=== PATIENT | male | born 1980 | race American Indian/Alaskan Native ===

== ENCOUNTER 2016-12-08 23:21 | Emergency (ER) | payer SELFPAY ==
[2016-12-08 23:21] VITALS: BMI 23.8
[2016-12-08 23:37] VITALS: O2SAT 98
--- NOTE | 2016-12-09 | ED PDOC ---
Arrival/HPI - General Historian: Patient, Spouse - History of Present Illness Time/Duration: 1 hour Symptom Onset: Sudden <Alberto Diego - Last Filed: 12/09/16 03:35> <Maxim Murphy - Last Filed: 12/09/16 04:03> - General Chief Complaint: Headache Time Seen by Provider: 12/08/16 23:35 - History of Present Illness Narrative History of Present Illness (Text): 12/09/16 00:08 36 year old male with past medical history of hypertension, migraine headache, and medication noncompliance presents to [facility] ED after having a syncope episode at home. Patient was feeling lightheaded and nauseous throughout the day. Patient was in the bathroom this evening where he suddenly felt dizzy and proceed to loss of consciousness. Patient reports hitting his head after became unconscious. Patient does not know how long he was unconscious. He is currently complaining of headache, blurred vision, and nauseous. Patient tried taking Tylenol for pain but vomited soon after taking it. Patient takes multiple HTN medication, but he has a history of medication noncompliance. Patient denies fever, chills, shortness of breath, chest pain, urinary or fecal incontinence. (Alberto Diego) Past Medical History - Provider Review Nursing Documentation Reviewed: Yes - Tetanus Immunization Tetanus Immunization: Unknown - Past Medical History Past Medical History: No Previous - Cardiac Hx Hypertension: Yes Hx Pacemaker: No - Pulmonary Hx Respiratory Disorders: No - Neurological Hx Neurological Disorder: No Hx Migraine: Yes - HEENT Hx HEENT Disorder: No - Renal Hx Renal Disorder: No - Endocrine/Metabolic Hx Endocrine Disorders: No - Hematological/Oncological Hx Blood Disorders: No Hx Blood Transfusions: No Hx Blood Transfusion Reaction: No - Integumentary Hx Dermatological Disorder: No - Musculoskeletal/Rheumatological Hx Musculoskeletal Disorders: No Hx Back Pain: (pt denies back pain) - Gastrointestinal Hx Gastrointestinal Disorders: No Other/Comment: stomach problem, had endo 1 yr ago was told he had "a lump" in his stomach, no follow up - Genitourinary/Gynecological Hx Genitourinary Disorders: No - Psychiatric Hx Psychophysiologic Disorder: No Hx Emotional Abuse: No Hx Physical Abuse: No Hx Substance Use: No - Surgical History Other/Comment: hernia sx umbilical as an - Anesthesia Hx Anesthesia: Yes Hx Anesthesia Reactions: No (SX INFANT) Hx Malignant Hyperthermia: No - Suicidal Assessment Feels Threatened In Home Enviroment: No <Alberto Diego - Last Filed: 12/09/16 03:35> Family/Social History - Physician Review Nursing Documentation Reviewed: Yes Family/Social History: Unknown Family HX Smoking Status: Current Some Days Smoker Hx Alcohol Use: Yes (social) Frequency of alcohol use: Socially Hx Substance Use: No <Alberto Diego - Last Filed: 12/09/16 03:35> Allergies/Home Meds <Alberto Diego - Last Filed: 12/09/16 03:35> <Maxim Murphy - Last Filed: 12/09/16 04:03> Allergies/Adverse Reactions: Allergies No Known Allergies Allergy (Verified 12/08/16 23:38) Review of Systems - Physician Review All systems were reviewed & negative as marked: Yes - Review of Systems Constitutional: Fatigue. absent: Weight Change, Fevers Eyes: Vision Changes (blurred vision) ENT: Normal Respiratory: Normal. absent: SOB, Cough Cardiovascular: Syncope. absent: Chest Pain, Palpitations, Edema Gastrointestinal: Nausea, Vomiting. absent: Abdominal Pain, Diarrhea Genitourinary Male: Normal Musculoskeletal: Normal Neurological: Headache Endocrine: Normal Hemo/Lymphatic: Normal Psychiatric: Normal <Alberto Diego - Last Filed: 12/09/16 03:35> Physical Exam Vital Signs Reviewed: Yes Temperature: Afebrile Blood Pressure: Hypertensive Pulse: Bradycardic Respiratory Rate: Normal Appearance: Positive for: Non-Toxic, Uncomfortable Pain Distress: Moderate Mental Status: Positive for: Alert and Oriented X 3 - Systems Exam Head: Present: Other (2 small bumps on the cephalic surface. No ecchymosis, no open laceration appreciated). No: Laceration Pupils: Present: PERRL Extroacular Muscles: Present: EOMI Conjunctiva: Present: Normal Mouth: Present: Moist Mucous Membranes Neck: Present: Normal Range of Motion Respiratory/Chest: Present: Clear to Auscultation, Good Air Exchange. No: Respiratory Distress, Accessory Muscle Use Cardiovascular: Present: Regular Rate and Rhythm, Bradycardic. No: Murmurs Abdomen: Present: Normal Bowel Sounds. No: Tenderness, Distention, Peritoneal Signs Back: Present: Normal Inspection Upper Extremity: Present: Normal Inspection. No: Cyanosis, Edema Lower Extremity: Present: Normal Inspection. No: Edema Neurological: Present: GCS=15, CN II-XII Intact, Speech Normal Skin: Present: Warm, Dry, Normal Color. No: Rashes Psychiatric: Present: Alert, Oriented x 3, Normal Insight, Normal Concentration <Alberto Diego - Last Filed: 12/09/16 03:35> Medical Decision Making - Lab Interpretations I have reviewed the lab results: Yes - RAD Interpretation Pressure Vessel Inspector: ED Physician, Radiologist - EKG Interpretation Interpreted by ED Physician: Yes Type: 12 lead EKG <Alberto Diego - Last Filed: 12/09/16 03:35> - Critical Care Critical Care Minutes: 30 minutes - Lab Interpretations I have reviewed the lab results: Yes - RAD Interpretation Pressure Vessel Inspector: ED Physician, Radiologist - EKG Interpretation Interpreted by ED Physician: Yes Type: 12 lead EKG <Maxim Murphy - Last Filed: 12/09/16 04:03> ED Course and Treatment: 12/09/16 00:39 -CT head -CBC, CMP -Cardiac ISO -CXR -EKG DDx: syncope, 12/09/16 00:43 Patient continue to complain of headache, 2mg morphine given 12/09/16 01:09 BP elevated to 198/100, hydralazine 10mg given 12/09/16 02:11 Case discussed with hospitalist attending Dr. Carl, in agreement with treatment plan. Resident notified. 12/09/16 03:00 Started Cardene drip to control patient's SBP in 130-160 range 12/09/16 03:15 Case discussed with Neurosurgery RUMA Mcgraw, recommends patient to be transferred to Neuro ICU at [facility] 12/09/16 03:36 [facility] [place] confirmed (Alberto Diego) Impression: Pt seen and evaluated with medical reviewer. Pt, whose past medical history includes hypertension, presents s/p syncopal episode while in the bathroom. States he woke up on the floor and hit his head. Notes he has been feeling unwell throughout the day and had 1 episode of vomiting after regaining consciousness. Aware and agree with HPI, clinical findings, plan, and management. Plan: -- CT Head w/o contrast -- EKG -- Chest X-ray -- Labs, cardiac enzymes -- Zofran -- Morphine -- Reassess and disposition 12/09/16 01:55 Case discussed with medical reviewer freezer person, who is aware and agrees with plan. 12/09/16 02:[address] Carl, exchange underwriting consultant.To ED to evaluate pt. 12/09/16 02:50 Reviewed radiology, CT Head shows: BRAIN: Diffuse acute subarachnoid hemorrhage. This fills the basilar cisterns, and is also present in the cortical sulci diffusely. It is symmetric in appearance. There is also acute intraventricular hemorrhage, with a small amount of hemorrhage seen the third ventricle, left frontal horn, and right occipital horn. No evidence of midline shift, ventricular effacement, basilar cistern effacement , or other significant intracranial mass effect. Galeana-white matter differentiation appears preserved. VENTRICLES: Ventricles appear mildly dilated for age, suspicious for mild hydrocephalus. BONES/JOINTS: No acute fractures or other acute bony abnormality noted. SOFT TISSUES: Areas of mild soft tissue swelling in the scalp bilaterally. SINUSES: Visualized paranasal sinuses appear clear. MASTOID AIR CELLS: Mastoid air cells appear clear. IMPRESSION: - Diffuse subarachnoid hemorrhage. Although there is a history of trauma, a ruptured aneurysm is not excluded. - Small amount of intraventricular hemorrhage. - Findings suspicious for mild hydrocephalus. - See above for remaining findings. Paged neurosurgery. 12/09/16 03:[address] Smith, neurosurgeon freezer person, states to transfer pt to [facility]. Paged [facility]. 12/09/16 03:24 Case discussed with YOJANA Mcgraw, [facility], who is aware and agrees with plan. Pt will be transferred to [facility] Neuro ICU. Dr. Bowles as accepting physician. Based upon the information available at the time of transfer, the medical benefits reasonably expected from the provision of medical treatment at [facility] outweigh the increased risk to the patient for transfer from this facility. I have described the inherent risks and benefits of the transfer to the patient, and patient agrees to transfer. Dr. Bowles has agreed to accept transfer of the patient and provide further medical treatment at the receiving facility. At the time of transfer, copies of all medical records sent which related to the emergency condition for which the individual presented. These records include observations of signs or symptoms, preliminary clinical impression, treatment provided, results of any completed test and an informed written consent to the transfer. (Katherine,Maxim) - Lab Interpretations Lab Results: 12/08/16 23:44 12/08/16 23:44 Lab Results 12/08/16 23:44: Sodium 138, Potassium 3.1 L, Chloride 98, Carbon Dioxide 24, Anion Gap 19, BUN 11, Creatinine 0.9, Est GFR ( Amer) > 60, Est GFR (Non- Af Amer) > 60, Random Glucose 178 H, Calcium 9.1, Total Bilirubin 0.5, AST 38, ALT 45, Alkaline Phosphatase 71, Lactate Dehydrogenase 555, Total Creatine Kinase 383 H, CK-MB (CK-2) 0.8, CK-MB (CK-2) % Cancelled, Troponin I < 0.01, Total Protein 8.7 H, Albumin 4.6, Globulin 4.2, Albumin/Globulin Ratio 1.1 12/08/16 23:44: WBC 17.2 H D, RBC 5.31, Hgb 16.4, Hct 46.4, MCV 87.4, MCH 30.9, MCHC 35.3, RDW 12.9, Plt Count 265, MPV 10.9, Gran % 85.2 H, Lymph % (Auto) 8.7 L, [place] % (Auto) 5.8, Eos % (Auto) 0.2 L, Baso % (Auto) 0.1, Gran # 14.67 H, Lymph # 1.5, [place] # 1.0 H, Eos # 0.0, Baso # 0.02 - RAD Interpretation Narrative RAD Interpretations (Text): 12/09/16 01:45 CXR showed no active disease 12/09/16 02:52 EXAM: CT Head Without Intravenous Contrast CLINICAL HISTORY: 36 years old, male; Injury or trauma; Fall; Initial encounter; Concussion / head injury; Additional info: Head trauma TECHNIQUE: Axial computed tomography images of the head/brain without intravenous contrast. This CT exam was performed using one or more of the following dose reduction techniques: automated exposure control, adjustment of the mA and/or kV according to patient size, and/or use of iterative reconstruction technique. EXAM DATE/TIME: 12/08/2016 11:55 PM COMPARISON: Prior head CT of 03/06/2016 FINDINGS: BRAIN: Diffuse acute subarachnoid hemorrhage. This fills the basilar cisterns, and is also present in the cortical sulci diffusely. It is symmetric in appearance. There is also acute intraventricular hemorrhage, with a small amount of hemorrhage seen the third ventricle, left frontal horn, and right occipital horn. No evidence of midline shift, ventricular effacement, basilar cistern effacement , or other significant intracranial mass effect. [place]-white matter differentiation appears preserved. VENTRICLES: Ventricles appear mildly dilated for age, suspicious for mild hydrocephalus. BONES/JOINTS: No acute fractures or other acute bony abnormality noted. SOFT TISSUES: Areas of mild soft tissue swelling in the scalp bilaterally. SINUSES: Visualized paranasal sinuses appear clear. MASTOID AIR CELLS: Mastoid air cells appear clear. IMPRESSION: - Diffuse subarachnoid hemorrhage. Although there is a history of trauma, a ruptured aneurysm is not excluded. - Small amount of intraventricular hemorrhage. - Findings suspicious for mild hydrocephalus. - See above for remaining findings. (Alberto Diego) Radiology Orders: 12/08/16 23:55 HEAD W/O CONTRAST [CT] Stat 12/09/16 00:00 CHEST PORTABLE [RAD] Stat - EKG Interpretation EKG Interpretation (Text): 12/09/16 00:51 Sinus bradycardia at 51 bpm, LVH, no acute ST changes. Read by me. (Alberto Diego) - Medication Orders Current Medication Orders: Acetaminophen (Tylenol 325mg Tab) 650 mg PO Q6H PRN PRN Reason: pain Nicardipine HCl (Cardene Iv Premix) 20 mg in 200 mls @ 50 mls/hr IV .Q4H PRN; Protocol; 5 MG/HR PRN Reason: TITRATE PER MD ORDER Last Admin: 12/09/16 03:02 Dose: 5 mg/hr, 50 mls/hr Metoclopramide HCl (Reglan) 5 mg IVP Q6 PRN PRN Reason: Nausea/Vomiting Pantoprazole Sodium (Protonix Ec Tab) 40 mg PO 0600 PENDING SALE TO [facility] Discontinued Medications Diphenhydramine HCl (Benadryl) 25 mg IVP ONCE ONE Stop: 12/09/16 01:58 Last Admin: 12/09/16 02:12 Dose: 25 mg Hydralazine HCl (Apresoline) 10 mg IVP STAT PENDING SALE TO [facility] Stop: 12/09/16 01:16 Last Admin: 12/09/16 01:13 Dose: 10 mg Metoclopramide HCl (Reglan) 10 mg IVP ONCE ONE Stop: 12/09/16 01:58 Last Admin: 12/09/16 02:12 Dose: 10 mg Morphine Sulfate (Morphine) 2 mg IVP STAT STA Stop: 12/09/16 00:06 Last Admin: 12/09/16 00:11 Dose: 2 mg Morphine Sulfate (Morphine) 2 mg IVP STAT STA Stop: 12/09/16 00:41 Last Admin: 12/09/16 00:43 Dose: 2 mg Ondansetron HCl (Zofran Inj) 4 mg IVP STAT STA Stop: 12/09/16 00:02 Last Admin: 12/09/16 00:12 Dose: 4 mg Potassium Chloride (K-Dur 20 Meq Er Tab) 40 meq PO STAT STA Stop: 12/09/16 01:35 Last Admin: 12/09/16 02:13 Dose: 40 meq - PA / TONGSMAN / Resident Statement REMY has reviewed & agrees with the documentation as recorded. REMY has examined the patient and agrees with the treatment plan. <Alberto Diego - Last Filed: 12/09/16 03:35> - PA / TONGSMAN / Resident Statement RMEY has reviewed & agrees with the documentation as recorded. REMY has examined the patient and agrees with the treatment plan. <Maxim Murphy - Last Filed: 12/09/16 04:03> Disposition/Present on Arrival - Present on Arrival Any Indicators Present on Arrival: No History of DVT/PE: No History of Uncontrolled Diabetes: No Urinary Catheter: No History of Decub. Ulcer: No History Surgical Site Infection Following: None - Disposition Have Diagnosis and Disposition been Completed?: Yes Patient Plan: Observation <Alberto Diego - Last Filed: 12/09/16 03:35> - Present on Arrival Any Indicators Present on Arrival: No History of DVT/PE: No History of Uncontrolled Diabetes: No Urinary Catheter: No History of Decub. Ulcer: No History Surgical Site Infection Following: None - Disposition Have Diagnosis and Disposition been Completed?: Yes Disposition Time: 04:03 <Maxim Murphy - Last Filed: 12/09/16 04:03> - Disposition Diagnosis: Headache, Syncope, Subarachnoid hemorrhage Disposition: Transfer Overlook Patient Problems: Current Active Problems Problem Status Onset Headache Acute Syncope Acute Condition: STABLE
[2016-12-09] MEDS ORDERED: Morphine 2 mg/ml ISec IVP STA ×2 (00:05→00:40)
[2016-12-09 00:22] LABS: BASO # 0.02 K/mm3 (0.0-2.0); BASO % 0.1 % (0.0-3.0); EOS % 0.2 % (1.5-5.0); GRAN # 14.67 (1.4-6.5); GRAN % 85.2 % (50.0-68.0); HEMOGLOBIN 16.4 gm/dL (14.0-18.0); LYMPH # 1.5 (1.2-3.4); LYMPH % 8.7 % (22.0-35.0); MEAN CELL VOLUME 87.4 fL (80.0-105.0); MEAN CORPUSCULAR HEMOGLOBIN 30.9 pg (25.0-35.0); MEAN CORPUSCULAR HGB CONC 35.3 g/dl (31.0-37.0); MEAN PLATELET VOLUME 10.9 fl (7.0-11.0); MONO % 5.8 % (1.0-6.0); PLATELET COUNT 265 10^3/uL (120.0-450.0); RBC 5.31 10^6/uL (3.5-6.1); RED CELL DISTRIBUTION WIDTH 12.9 % (11.5-14.5); WHITE BLOOD COUNT 17.2 10^3/ul (4.5-11.0)
[2016-12-09 00:29] LABS: ALB/GLOB RATIO 1.1 (1.1-1.8); ALBUMIN 4.6 g/dL (3.0-4.8); ALT/SGPT 45 U/L (7-56); AST/SGOT 38 U/L (15-59); BLOOD UREA NITROGEN 11 mg/dL (7-21); CALCIUM 9.1 mg/dL (8.4-10.5); GFR AFRICAN-AMERICAN > 60; GFR NON-AFRICAN AMERICAN > 60
[2016-12-09 00:41] LABS: TROPONIN I < 0.01 ng/mL
[2016-12-09 00:44] LABS: CK-MB 0.8 ng/mL (0.0-3.6)
[2016-12-09] MEDS ORDERED: Potassium Chloride 20 mEq ER Tab PO STA (01:34)
--- NOTE | 2016-12-09 01:50 | CP.PCM.HP ---
<Julio C Schafer - Last Filed: 12/09/16 03:33> History of Present Illness - History of Present Illness History of Present Illness: Patient is a 36 year old male who presents to the ED for evaluation of a loss of consciousness followed by a fall with head trauma. Patients girlfriend is at bedside. Permission was granted to discuss medical information in front of girlfriend. Patient states he has been experiencing a headache for the past 2 weeks, which begins in the bilateral temporal region of the head and radiates posteriorly to the occiput. Patient cannot qualify the type of pain he is experiencing. Patient also experienced nausea this morning with associated nonbloody emesis. He then lost consciousness and cannot quantify the amount of time it took for him for regain consciousness. He remembers awakening and calling his girlfriend thereafter. He experienced another 2 bout of nonbloody emesis since LOC episode. Patient states that he experienced headahces in the past prior to him recieving antihypertensive medication. He had not been compliant with his current medication regiment for the past 2 weeks. Currently admits to headache, dizziness, nausea. Denies fever , chills, chest pain, SOB, abdominal pain, N/V, diarrhea, constipation, and urinary symptoms. PMH: HTN PSH: abdominal hernia when he was younger ALL: none SH: ETOH ocaasionally, smokes 1 ppd for 22 years, marijuana daily FH: mom side has DM, HTN, and migraines Meds: Please see MAR Present on Admission - Present on Admission Any Indicators Present on Admission: No Review of Systems - Review of Systems Review of Systems: Please see HPI Past Patient History - Tetanus Immunizations Tetanus Immunization: Unknown - Past Social History Smoking Status: Current Some Days Smoker - CARDIAC Hx Hypertension: Yes Hx Pacemaker: No - PULMONARY Hx Respiratory Disorders: No - NEUROLOGICAL Hx Neurological Disorder: No Hx Migraine: Yes - HEENT Hx HEENT Problems: No - RENAL Hx Chronic Kidney Disease: No - ENDOCRINE/METABOLIC Hx Endocrine Disorders: No - HEMATOLOGICAL/ONCOLOGICAL Hx Blood Disorders: No Hx Blood Transfusions: No Hx Blood Transfusion Reaction: No - INTEGUMENTARY Hx Dermatological Problems: No - MUSCULOSKELETAL/RHEUMATOLOGICAL Hx Musculoskeletal Disorders: No Hx Back Pain: (pt denies back pain) - GASTROINTESTINAL Hx Gastrointestinal Disorders: No Other/Comment: stomach problem, had endo 1 yr ago was told he had "a lump" in his stomach, no follow up - GENITOURINARY/GYNECOLOGICAL Hx Genitourinary Disorders: No - PSYCHIATRIC Hx Psychophysiologic Disorder: No Hx Emotional Abuse: No Hx Physical Abuse: No Hx Substance Use: No - SURGICAL HISTORY Other/Comment: hernia sx umbilical as an infant - ANESTHESIA Hx Anesthesia: Yes Hx Anesthesia Reactions: No (SX INFANT) Hx Malignant Hyperthermia: No Meds Allergies/Adverse Reactions: Allergies Allergy/AdvReac Type Severity Reaction Status Date / Time No Known Allergies Allergy Verified 12/08/16 23:38 Physical Exam - Head Exam Additional comments: erythema and swelling on the right temporal region of the head, tender to touch swelling at the posterior superior aspect of the occiput - Eye Exam Eye Exam: EOMI, Normal appearance - Neck Exam Neck exam: Positive for: Normal Inspection. Negative for: Tenderness - Respiratory Exam Respiratory Exam: Clear to Auscultation Bilateral, NORMAL BREATHING PATTERN. absent: Accessory Muscle Use, Rales, Rhonchi, Wheezes - Cardiovascular Exam Cardiovascular Exam: Bradycardia, REGULAR RHYTHM, +S1, +S2 - GI/Abdominal Exam GI & Abdominal Exam: Normal Bowel Sounds, Soft. absent: Rebound, Rigid, Tenderness - Extremities Exam Extremities exam: Positive for: normal inspection. Negative for: tenderness - Back Exam Back exam: NORMAL INSPECTION - Neurological Exam Neurological exam: CN II-XII Intact, Oriented x3 Additional comments: Patient is awake, alert and oriented He is responding to verbal stimuli, answering questions appropriately, and moving extremities past midline CN II- XII intact bilaterally Muscle strength 5/5 throughout Sensation is intact to touch throughout - Psychiatric Exam Psychiatric exam: Normal Affect, Normal Mood - Skin Skin Exam: Erythema, Warm Results - Vital Signs Recent Vital Signs: Last Vital Signs Temp 98.0 F 12/08/16 23:33 Pulse 51 L 12/09/16 01:13 Resp 18 12/08/16 23:33 BP 198/117 H 12/09/16 01:13 Pulse Ox 98 12/08/16 23:33 - Labs Result Diagrams: 12/08/16 23:44 12/08/16 23:44 Labs: Laboratory Results - last 24 hr 12/08/16 12/08/16 23:44 23:44 WBC 17.2 H D RBC 5.31 Hgb 16.4 Hct 46.4 MCV 87.4 MCH 30.9 MCHC 35.3 RDW 12.9 Plt Count 265 MPV 10.9 Gran % 85.2 H Lymph % (Auto) 8.7 L Casey % (Auto) 5.8 Eos % (Auto) 0.2 L Baso % (Auto) 0.1 Gran # 14.67 H Lymph # 1.5 Casey # 1.0 H Eos # 0.0 Baso # 0.02 Sodium 138 Potassium 3.1 L Chloride 98 Carbon Dioxide 24 Anion Gap 19 BUN 11 Creatinine 0.9 Est GFR ( Amer) > 60 Est GFR (Non-Af Amer) > 60 Random Glucose 178 H Calcium 9.1 Total Bilirubin 0.5 AST 38 ALT 45 Alkaline Phosphatase 71 Lactate Dehydrogenase 555 Total Creatine Kinase 383 H CK-MB (CK-2) 0.8 CK-MB (CK-2) % Cancelled Troponin I < 0.01 Total Protein 8.7 H Albumin 4.6 Globulin 4.2 Albumin/Globulin Ratio 1.1 Assessment & Plan - Assessment and Plan (Free Text) Assessment: Patient is a 36 year old male with a PMHx of HTN who is being admitted to the hospital for evaluation and treatment of a syncopal episode with associated injury to his head. Plan: Patient is a 36 year old male with a PMHx of HTN who is being admitted to the hospital for evaluation and treatment of a syncopal episode with associated injury to his head. 1. Syncope, Vertigo, Headache - high risk fall precautions - bed rest - tylenol for pain control 2. Injury to Head - CT of head- Diffuse subarachnoid hemorrhage. Although there is a history of trauma, a ruptured aneurysm is not excluded. Small amount of intraventricular hemorrhage. Findings suspicious for mild hydrocephalus. - Admit to ICU - Vital q1 hours - neurochecks q1 hours - head of bed 30 degrees - neurosurgery consult 3. HTN - hold home clonidine, HCTZ, Lisinopril, and propanolol - continue nicardipine drip with SBP goal between 120-160 4. Nausea - reglan 5. Hypokalemia - repleted by ED - monitor closely via BMP 6. Leukocytosis - blood cultures 7. PPX - Protonix - SCDs <Meseret MOORE,Galdino - Last Filed: 12/09/16 10:29> Results - Vital Signs Recent Vital Signs: Last Vital Signs Temp 98.1 F 12/09/16 03:37 Pulse 97 H 12/09/16 03:37 Resp 18 12/09/16 03:37 BP 147/98 H 12/09/16 03:37 Pulse Ox 98 12/09/16 03:37 - Labs Result Diagrams: 12/08/16 23:44 12/08/16 23:44 Labs: Laboratory Results - last 24 hr 12/08/16 12/08/16 23:44 23:44 WBC 17.2 H D RBC 5.31 Hgb 16.4 Hct 46.4 MCV 87.4 MCH 30.9 MCHC 35.3 RDW 12.9 Plt Count 265 MPV 10.9 Gran % 85.2 H Lymph % (Auto) 8.7 L Casey % (Auto) 5.8 Eos % (Auto) 0.2 L Baso % (Auto) 0.1 Gran # 14.67 H Lymph # 1.5 Casey # 1.0 H Eos # 0.0 Baso # 0.02 Sodium 138 Potassium 3.1 L Chloride 98 Carbon Dioxide 24 Anion Gap 19 BUN 11 Creatinine 0.9 Est GFR ( Amer) > 60 Est GFR (Non-Af Amer) > 60 Random Glucose 178 H Calcium 9.1 Total Bilirubin 0.5 AST 38 ALT 45 Alkaline Phosphatase 71 Lactate Dehydrogenase 555 Total Creatine Kinase 383 H CK-MB (CK-2) 0.8 CK-MB (CK-2) % Cancelled Troponin I < 0.01 Total Protein 8.7 H Albumin 4.6 Globulin 4.2 Albumin/Globulin Ratio 1.1 Attending/Attestation - Attestation I have personally seen and examined this patient.: Yes I have fully participated in the care of the patient.: Yes I have reviewed all pertinent clinical information: Yes Notes (Text): 12/09/16 10:22 -I agree with the above H&P completed by the resident physician with the following additions and/or changes: The patient is a 36 AAM with a history of poorly controlled HTN and migraine headaches, who suffered a syncopal episode earlier in the evening, while getting up from the toilet at home. During the episode, he hit his head on the ground. Since that time, he's had a severe headache. Denies focal neuro deficits. However, girlfriend notes that he's been "acting weird" since that time. In the ED, his SBP was initially found to be around 200; Also, a diffuse SAH was noted on CT scan of the head. As a result, the on-call neurosurgeon, recommends for the patient to be transferred to [facility] (in [place], [place]) now instead of being admitted at [facility] since the former hospital is much better equipped to management these types of acute neurological bleeds. This plan was explained to the patient, his girlfriend (at bedside) and the patient' s mother via telephone.
[2016-12-09] MEDS ORDERED: DiphenhydrAMINE 50 mg/ml Inj IVP ONE (01:57)
--- NOTE | 2016-12-09 02:45 | CT ---
EXAM: CT Head Without Intravenous Contrast CLINICAL HISTORY: 36 years old, male; Injury or trauma; Fall; Initial encounter; Concussion / head injury; Additional info: Head trauma TECHNIQUE: Axial computed tomography images of the head/brain without intravenous contrast. This CT exam was performed using one or more of the following dose reduction techniques: automated exposure control, adjustment of the mA and/or kV according to patient size, and/or use of iterative reconstruction technique. EXAM DATE/TIME: 12/08/2016 11:55 PM COMPARISON: Prior head CT of 03/06/2016 FINDINGS: BRAIN: Diffuse acute subarachnoid hemorrhage. This fills the basilar cisterns, and is also present in the cortical sulci diffusely. It is symmetric in appearance. There is also acute intraventricular hemorrhage, with a small amount of hemorrhage seen the third ventricle, left frontal horn, and right occipital horn. No evidence of midline shift, ventricular effacement, basilar cistern effacement, or other significant intracranial mass effect. [place]-white matter differentiation appears preserved. VENTRICLES: Ventricles appear mildly dilated for age, suspicious for mild hydrocephalus. BONES/JOINTS: No acute fractures or other acute bony abnormality noted. SOFT TISSUES: Areas of mild soft tissue swelling in the scalp bilaterally. SINUSES: Visualized paranasal sinuses appear clear. MASTOID AIR CELLS: Mastoid air cells appear clear. IMPRESSION: - Diffuse subarachnoid hemorrhage. Although there is a history of trauma, a ruptured aneurysm is not excluded. - Small amount of intraventricular hemorrhage. - Findings suspicious for mild hydrocephalus. - See above for remaining findings.
[2016-12-09] MEDS ORDERED: Nicardipine 20 MG/200 ML 20 MG/200 ML BAG IV PRN (02:56)
[2016-12-09 03:37] VITALS: BP 147/98; PULSE 97; RESP 18
[2016-12-09 04:11] VITALS: TEMP 98.1
[2016-12-09] MEDS ORDERED: Pantoprazole 40 mg EC Tab PO SCH (06:00)
--- NOTE | 2016-12-09 08:05 | RAD ---
HISTORY: Syncope COMPARISON: 03/05/2016. FINDINGS: LUNGS: The lungs are well inflated and clear. PLEURA: No significant pleural effusion identified, no pneumothorax apparent. CARDIOVASCULAR: Normal. OSSEOUS STRUCTURES: No significant abnormalities. VISUALIZED UPPER ABDOMEN: Normal. OTHER FINDINGS: None. IMPRESSION: No active pulmonary disease.
--- NOTE | 2016-12-09 23:28 | CARD ---
APPROVED REPORT EKG Measurement Heart [id number] [id number] <Conclusion> Sinus bradycardia with Junctional Escape rhythm Left ventricular hypertrophy with repolarization abnormality Abnormal ECG
== END 2016-12-09 04:23 | disposition short-term general hospital (02) ==
LOC: ED 23:21 → UNDOADMOB 12-09 02:09 → ERH 12-09 02:09 → ED 12-09 04:23
DX: I60.9 Nontraumatic subarachnoid hemorrhage, unspecified (principal); R55 Syncope and collapse; R51 Headache; I10 Essential (primary) hypertension; Z72.0 Tobacco use
CPT/HCPCS: 70450; 71010; 80053; 82550; 82553; 83615; 84484; 85025; 93005; 96374; 96375; 96376; 99285; J0360; J1200; J2270; J2405; J2765